=== PATIENT | male | born 1975 | race Caucasian/White ===

== ENCOUNTER 2017-03-20 23:34 | Emergency (ER) | payer OTHER ==
[~2017-03-20] VITALS: Ht 177.8 cm; Wt 90.5 kg
[2017-03-20 23:36] VITALS: BP 152/82; PULSE 92; RESP 18; TEMP 97.4; O2SAT 100
[2017-03-20] MEDS ORDERED: ZIPR1CAP12 PO (23:57)
[2017-03-20] MEDS ORDERED: LISI20TA PO (23:57)
[2017-03-20] MEDS ORDERED: BACL10TA PO (23:57)
[2017-03-20] MEDS ORDERED: LANTUS2P SQ (23:57)
[2017-03-20] MEDS ORDERED: METF1000 PO (23:57)
[2017-03-20] MEDS ORDERED: XANA2TAB2 PO (23:57)
[2017-03-20] MEDS ORDERED: AMBI10TA PO (23:57)
[2017-03-21] MEDS ORDERED: ASPIRIN 81 MG CHEW TAB PO ONE (00:15)
[2017-03-21] MEDS ORDERED: SODIUM CHLORIDE 0.9% FLUSH 10 ML FLUSH IVF PRN (00:15)
[2017-03-21 00:30] LABS: AUTOMATED NEUTROPHIL # 5.8 TH/MM3 (1.8-7.7); BASOPHIL # 0.1 TH/MM3 (0-0.2); BASOPHIL % 0.4 % (0.0-2.0); EOSINOPHIL # 0.3 TH/MM3 (0-0.4); EOSINOPHIL % 2.7 % (0.0-4.0); HEMATOCRIT 39.8 % (39.0-51.0); LYMPHOCYTE # 5.3 TH/MM3 (1.0-4.8); MEAN CELL VOLUME 91.4 FL (80.0-100.0); MEAN CORPUSCULAR HEMOGLOBIN 32.2 PG (27.0-34.0); MEAN CORPUSCULAR HGB CONC 35.2 % (32.0-36.0); MONO % 9.1 % (0.0-8.0); MONOCYTE # 1.2 TH/MM3 (0-0.9); NEUT % 45.8 % (16.0-70.0); PLATELET COUNT 471 TH/MM3 (150-450); RED BLOOD COUNT 4.35 MIL/MM3 (4.50-5.90); RED CELL DISTRIBUTION WIDTH 13.3 % (11.6-17.2); WHITE BLOOD COUNT 12.6 TH/MM3 (4.0-11.0)
--- NOTE | 2017-03-21 00:31 | PD ---
HPI Chief Complaint: Pain: Acute or Chronic Time Seen by Provider: 23:59 Travel History International Travel<30 days: No Contact w/Intl Traveler<30days: No Traveled to known affect area: No History of Present Illness HPI 41-year-old male presents to emergency department complaining of 4 days of cough, congestion, left-sided chest wall pain. The patient states that he has chronic bronchitis and smokes a large amount of cigarettes. He states that he does not use any inhalers. He is disabled with bipolar and schizophrenia. The patient just moved to the area in the last 2 weeks to live with his brother here in [facility]. Patient denies any exertional chest pain. The patient states the pain is a aching pain. It is a aching type pain. He states the pain is worse with coughing or taking a deep breath. He denies any associated nausea, vomiting, diaphoresis or radiation of pain. He states the pain is moderate. Patient denies any fever or chills. No headache, earache, sore throat, abdominal pain or urinary symptoms. PFSH Past Medical History Narrative Medical Hypertension, Diabetes, hypercholesterolemia, COPD, schizophrenia, bipolar High Cholesterol: Yes Diabetes: Yes Patient Takes Glucophage: Yes Hypertension: Yes Psychiatric: Yes (bipolar) Influenza Vaccination: Yes Past Surgical History Oral Surgery: Yes (toothe abcess removal) Social History Alcohol Use: No Tobacco Use: Yes (03/05) Substance Use: No Allergies-Medications (Allergen,Severity, Reaction): Coded Allergies: No Known Allergies (Unverified , 03/20/17) Reported Meds & Prescriptions Reported Meds & Active Scripts Active Diclofenac Sodium DR (Diclofenac Sodium) 75 Mg Tabdr 75 Mg PO BID Doxycycline Hyclate 100 Mg Cap 100 Mg PO BID Proventil Hfa 6.7 GM Inh (Albuterol Sulfate) 90 Mcg/Act Aer 2 Puff INH Q4-6H PRN Reported Lisinopril-Hctz 20-12.5 Mg Tab 1 Tab PO DAILY Baclofen 10 Mg Tab 10 Mg PO BID Xanax (Alprazolam) 2 Mg Tab 2 Mg PO BID PRN Ambien (Zolpidem Tartrate) 10 Mg Tab 10 Mg PO HS PRN Lantus Inj (Insulin Glargine) 1,000 Unit/10 Ml Vial 60 Units SQ HS Metformin (Metformin HCl) 1,000 Mg Tab 1,000 Mg PO BIDPC Ziprasidone 80 Mg Cap 80 Mg PO BID Review of Systems Except as stated in HPI: all other systems reviewed are Neg Physical Exam Narrative GENERAL: Well-developed, well-nourished in no apparent distress. Nontoxic appearing. HEAD: Normocephalic, atraumatic. EYES: Pupils equal round and reactive. Extraocular motions intact. No scleral icterus. No injection or drainage. ENT: Nose clear. Throat without erythema, tonsillar hypertrophy or exudate. Uvula midline. Airway patent. NECK: Trachea midline. Supple, nontender, moves head freely. No central bony tenderness or spasm. CARDIOVASCULAR: Regular rate and rhythm without murmurs, gallops, or rubs. RESPIRATORY: Clear to auscultation. Breath sounds equal bilaterally. No wheezes , rales, or rhonchi. GASTROINTESTINAL: Abdomen soft, non-tender, nondistended. No hepato-splenomegaly , or palpable masses. No guarding. EXTREMITIES: No clubbing, cyanosis, or edema. No joint tenderness. BACK: Nontender without deformity. No flank tenderness. NEUROLOGICAL: Awake, alert and oriented x 3 .Cranial nerves grossly intact. Motor and sensory grossly within normal limits. Normal speech. Data Data Last Documented VS Vital Signs Date Time Temp Pulse Resp B/P (MAP) Pulse Ox O2 Delivery O2 Flow Rate FiO2 03/20/17 23:36 97.4 92 18 152/82 (105) 100 Room Air Orders Orders Electrocardiogram (03/21/17 00:08) Basic Metabolic Panel (Bmp) (03/21/17 00:08) Complete Blood Count With Diff (03/21/17 00:08) Troponin I (03/21/17 00:08) Chest, Single Ap (03/21/17 00:08) Ecg Monitoring (03/21/17 00:08) Iv Access Insert/Monitor (03/21/17 00:08) Oximetry (03/21/17 00:08) Oxygen Administration (03/21/17 00:08) Aspirin Chew (Aspirin Chew) (03/21/17 00:15) Sodium Chloride 0.9% Flush (Ns Flush) (03/21/17 00:15) Ed Discharge Order (03/21/17 01:04) Labs Laboratory Tests Test 03/21/17 00:15 White Blood Count 12.6 TH/MM3 Red Blood Count 4.35 MIL/MM3 Hemoglobin 14.0 GM/DL Hematocrit 39.8 % Mean Corpuscular Volume 91.4 FL Mean Corpuscular Hemoglobin 32.2 PG Mean Corpuscular Hemoglobin Concent 35.2 % Red Cell Distribution Width 13.3 % Platelet Count 471 TH/MM3 Mean Platelet Volume 7.0 FL Neutrophils (%) (Auto) 45.8 % Lymphocytes (%) (Auto) 42.0 % Monocytes (%) (Auto) 9.1 % Eosinophils (%) (Auto) 2.7 % Basophils (%) (Auto) 0.4 % Neutrophils # (Auto) 5.8 TH/MM3 Lymphocytes # (Auto) 5.3 TH/MM3 Monocytes # (Auto) 1.2 TH/MM3 Eosinophils # (Auto) 0.3 TH/MM3 Basophils # (Auto) 0.1 TH/MM3 CBC Comment AUTO DIFF Differential Total Cells Counted 100 Neutrophils % (Manual) 44 % Lymphocytes % 42 % Monocytes % 12 % Eosinophils % 1 % Neutrophils # (Manual) 5.7 TH/MM3 Myelocytes 1 % Differential Comment FINAL DIFF MANUAL Atypical Lymphocytes % Platelet Estimate HIGH Platelet Morphology Comment NORMAL Red Cell Morphology Comment NORMAL Blood Urea Nitrogen 21 MG/DL Creatinine 1.18 MG/DL Random Glucose 106 MG/DL Calcium Level 9.0 MG/DL Sodium Level 137 MEQ/L Potassium Level 3.9 MEQ/L Chloride Level 103 MEQ/L Carbon Dioxide Level 27.8 MEQ/L Anion Gap 6 MEQ/L Estimat Glomerular Filtration Rate 68 ML/MIN Troponin I LESS THAN 0.02 NG/ML MDM Medical Decision Making Medical Screen Exam Complete: Yes Emergency Medical Condition: Yes Medical Record Reviewed: Yes Interpretation(s) EKG: Normal sinus rhythm with a ventricular rate of 85. Cinebar of 95. This is mildly rightward axis Differential Diagnosis Differential diagnoses: Pneumonia, bronchitis, pleuritic chest wall pain, angina , shingles Narrative Course The patient's EKG is negative for acute ST-T wave changes. His troponin is negative. X-rays negative. Patient's history symptoms are more consistent with a noncardiac chest pain. Patient has symptoms of upper respiratory tract etiology. Patient will be given doxycycline, albuterol and diclofenac. This is bronchitis, pleuritic chest wall pain, COPD Diagnosis Primary Impression: bronchitis Additional Impressions: pleuritic chest pain COPD Patient Instructions: General Instructions Additional Instructions: Rest. Increase fluids. Stop smoking. Tylenol and Advil. Robitussin-DM. Doxycycline, diclofenac, and albuterol. Followup with your Dr. in one week. Return to the ER for any problems. Med/Other Pt SpecificInfo: Prescription(s) given Scripts Diclofenac Sodium DR (Diclofenac Sodium DR) 75 Mg Tabdr 75 MG PO BID, #14 TAB 0 Refills Prov: Ryan Segura MD 03/21/17 Doxycycline Hyclate (Doxycycline Hyclate) 100 Mg Cap 100 MG PO BID for Infection, #14 CAP 0 Refills Prov: Ryan Segura MD 03/21/17 Albuterol 6.7 GM Inh (Proventil Hfa 6.7 GM Inh) 90 Mcg/Act Aer 2 PUFF INH Q4-6H Y for SHORTNESS OF BREATH, #1 INHALER 0 Refills Prov: Ryan Segura MD 03/21/17 Disposition: 01 DISCHARGE HOME Condition: Stable Mark Meier Mar 21, 2017 00:31
[2017-03-21 00:52] LABS: BICARBONATE 27.8 MEQ/L (21.0-32.0); BLOOD UREA NITROGEN 21 MG/DL (7-18); CHLORIDE 103 MEQ/L (98-107); CREATININE 1.18 MG/DL (0.60-1.30); GLOMERULAR FILTRATION RATE 68 ML/MIN (>89); GLUCOSE,RANDOM 106 MG/DL (74-106); SODIUM (NA) 137 MEQ/L (136-145)
--- NOTE | 2017-03-21 00:52 | RADRPT ---
EXAM DATE/TIME: 03/21/2017 00:40 [facility] COMPARISON: No previous studies available for comparison. INDICATIONS : Left sided chest pain for 3 days MEDICAL HISTORY : None. SURGICAL HISTORY : None. ENCOUNTER: Initial ACUITY: 3 days PAIN SCORE: 8/10 LOCATION: Left chest FINDINGS: A single view of the chest demonstrates the lungs to be symmetrically aerated without evidence of mas s, infiltrate or effusion. The cardiomediastinal contours are unremarkable. Osseous structures are intact. CONCLUSION: No acute disease. Terrell Rosa MD on March 21, 2017 at 0:50 Board Certified Radiologist. This report was verified electronically.
[2017-03-21 00:56] LABS: TROPONIN I LESS THAN 0.02 NG/ML (0.02-0.05)
[2017-03-21 01:04] LABS: LYMPHOCYTES 42 % (9-44); MONOCYTES 12 % (0-8); MYELOCYTES 1 % (0-0); NEUTROPHIL # MANUAL DIFF 5.7 TH/MM3 (1.8-7.7); POLYS (SEG NEUTROPHILS) 44 % (16-70)
[2017-03-21] MEDS ORDERED: ALBU6.7H INH (01:07)
[2017-03-21] MEDS ORDERED: DICL75TA PO (01:07)
[2017-03-21] MEDS ORDERED: DOXY100C PO (01:07)
--- NOTE | 2017-03-21 22:06 | EKG ---
Date Performed: 03/21/2017 Time Performed: 00:16:50 PTAGE: 41 years EKG: Sinus rhythm BORDERLINE RIGHT AXIS DEVIATION BORDERLINE ECG NO PREVIOUS TRACING DOCTOR: Robin Christopher Interpretating Date/Time 03/21/2017 22:06:15
== END 2017-03-21 01:14 | disposition home or self-care (01) ==
LOC: NEPD 23:34
DX: J44.9 Chronic obstructive pulmonary disease, unspecified (principal); R07.89 Other chest pain; F31.9 Bipolar disorder, unspecified; F20.9 Schizophrenia, unspecified; I10 Essential (primary) hypertension; E11.9 Type 2 diabetes mellitus without complications; E78.00 Pure hypercholesterolemia, unspecified; F17.210 Nicotine dependence, cigarettes, uncomplicated; Z79.4 Long term (current) use of insulin
CPT/HCPCS: 71045; 80048; 84484; 85007; 85027; 93005

== ENCOUNTER 2017-04-25 15:54 | Inpatient (IN) | payer MEDICARE, MEDICAID ==
[2017-04-25] VITALS (8 sets, daily range): BP systolic 91–137; BP diastolic 52–85; PULSE 62–77; RESP 16–18; TEMP 98–98.3; O2SAT 95–99
[~2017-04-25] VITALS: Ht 177.8 cm; Wt 86.2 kg
[~2017-04-25 15:54] MED LIST: ALBU6.7H INH; AMBI10TA PO; BACL10TA PO; DICL75TA PO; DOXY100C PO; LANTUS2P SQ; LISI20TA PO; METF1000 PO; XANA2TAB2 PO; ZIPR1CAP12 PO
[2017-04-25] MEDS ORDERED: SODIUM CHLOR 0.9% 1000 ML INJ 1,000 ML IV ONE ×2 (16:30→17:15)
[2017-04-25 16:33] LABS: AUTOMATED NEUTROPHIL # 5.3 TH/MM3 (1.8-7.7); BASOPHIL % 0.3 % (0.0-2.0); EOSINOPHIL # 0.2 TH/MM3 (0-0.4); HEMATOCRIT 36.4 % (39.0-51.0); HEMOGLOBIN 12.8 GM/DL (13.0-17.0); LYMPH % 33.7 % (9.0-44.0); LYMPHOCYTE # 3.3 TH/MM3 (1.0-4.8); MEAN CELL VOLUME 91.8 FL (80.0-100.0); MEAN CORPUSCULAR HEMOGLOBIN 32.2 PG (27.0-34.0); MEAN CORPUSCULAR HGB CONC 35.1 % (32.0-36.0); MONO % 9.4 % (0.0-8.0); MONOCYTE # 0.9 TH/MM3 (0-0.9); NEUT % 54.6 % (16.0-70.0); PLATELET COUNT 367 TH/MM3 (150-450); RED BLOOD COUNT 3.96 MIL/MM3 (4.50-5.90); RED CELL DISTRIBUTION WIDTH 13.3 % (11.6-17.2); WHITE BLOOD COUNT 9.8 TH/MM3 (4.0-11.0)
[2017-04-25 16:46] LABS: ALBUMIN 3.9 GM/DL (3.4-5.0); ALT (GPT) 20 U/L (12-78); AST (GOT) 17 U/L (15-37); BICARBONATE 26.2 MEQ/L (21.0-32.0); BLOOD UREA NITROGEN 44 MG/DL (7-18); CHLORIDE 99 MEQ/L (98-107); CREATININE 2.89 MG/DL (0.60-1.30); GLOMERULAR FILTRATION RATE 24 ML/MIN (>89); GLUCOSE,RANDOM 120 MG/DL (74-106); SODIUM (NA) 132 MEQ/L (136-145)
--- NOTE | 2017-04-25 16:48 | RADRPT ---
EXAM DATE/TIME: 04/25/2017 16:34 [facility] COMPARISON: CHEST SINGLE AP, March 21, 2017, 0:40. INDICATIONS : Chest pain. MEDICAL HISTORY : None. SURGICAL HISTORY : None. ENCOUNTER: Initial ACUITY: 1 day PAIN SCORE: 3/10 LOCATION: Bilateral chest FINDINGS: A single view of the chest demonstrates the lungs to be symmetrically aerated without evidence of mas s, infiltrate or effusion. The cardiomediastinal contours are unremarkable. Osseous structures are intact. CONCLUSION: The lungs are clear. Roe Cortez MD on April 25, 2017 at 16:46 Board Certified Radiologist. This report was verified electronically.
[2017-04-25 16:49] LABS: ALKALINE PHOSPHATASE 70 U/L (45-117); TOTAL BILIRUBIN ADULT 0.5 MG/DL (0.2-1.0); TOTAL PROTEIN 7.4 GM/DL (6.4-8.2)
[2017-04-25 16:52] LABS: BILIRUBIN, URINE NEG (NEG); BLOOD, URINE NEG (NEG); GLUCOSE,URINE NEG (NEG); HYALINE CAST, URINE 25 /lpf (RARE); KETONE, URINE NEG (NEG); MUCUS URINE FEW /lpf (OCC); NITRITE,URINE NEG (NEG); SQUAMOUS EPITHELIAL CELL URINE <1 /hpf (0-5); URINE COLOR YELLOW (YELLW/STRAW); URINE LEUKOCYTE ESTERASE TRACE (NEG)
--- NOTE | 2017-04-25 17:06 | PD ---
HPI Chief Complaint: GI Complaint Time Seen by Provider: 16:22 Travel History International Travel<30 days: No Contact w/Intl Traveler<30days: No Traveled to known affect area: No History of Present Illness HPI 41-year-old male that presents to the ED for evaluation of dizziness with drinking or eating. Per patient, who is somewhat of a poor historian secondary to his psychiatric history, he gets dizzy every time he eats or drinks anything. Per patient otherwise he has no symptoms. Per patient usually comes afterwards. Per report that was given by ambulance and nurse he was complaining more nausea and vomited. When asked about this he states that he does throw up but he feels more dizzy. He denies any abdominal pain. Per patient she's had some chest pain on and off for the past couple of weeks. Per patient the symptoms ongoing for 2 weeks. He has not seen anybody for this. He has a history of diabetes and states that his been compliant with his medications. No history of kidney problems. No fevers chills or sweats. No headache. He does have a significant history of schizophrenia as well as bipolar disorder and takes medications for this as well. He states that the pain of the chest comes and goes. Denies any urinary bowel movement issues. No fevers chills or sweats. Other medical issues. Currently he has no pain. PFSH Past Medical History Cardiovascular Problems: Yes High Cholesterol: Yes Diabetes: Yes Hypertension: Yes Psychiatric: Yes (bipolar) Past Surgical History Oral Surgery: Yes (toothe abcess removal) Social History Alcohol Use: No Tobacco Use: Yes (03/05) Substance Use: No Allergies-Medications (Allergen,Severity, Reaction): Coded Allergies: No Known Allergies (Unverified , 03/20/17) Reported Meds & Prescriptions Reported Meds & Active Scripts Active Diclofenac Sodium DR (Diclofenac Sodium) 75 Mg Tabdr 75 Mg PO BID Doxycycline Hyclate 100 Mg Cap 100 Mg PO BID Proventil Hfa 6.7 GM Inh (Albuterol Sulfate) 90 Mcg/Act Aer 2 Puff INH Q4-6H PRN Reported Lisinopril-Hctz 20-12.5 Mg Tab 1 Tab PO DAILY Baclofen 10 Mg Tab 10 Mg PO BID Xanax (Alprazolam) 2 Mg Tab 2 Mg PO BID PRN Ambien (Zolpidem Tartrate) 10 Mg Tab 10 Mg PO HS PRN Lantus Inj (Insulin Glargine) 1,000 Unit/10 Ml Vial 60 Units SQ HS Metformin (Metformin HCl) 1,000 Mg Tab 1,000 Mg PO BIDPC Ziprasidone 80 Mg Cap 80 Mg PO BID Review of Systems ROS Limitations: Poor Historian Except as stated in HPI: all other systems reviewed are Neg Physical Exam Exam Limitations: Poor Historian Narrative GENERAL: SKIN: Warm and dry. HEAD: Atraumatic. Normocephalic. EYES: Pupils equal and round. No scleral icterus. No injection or drainage. ENT: No nasal bleeding or discharge. Mucous membranes pink and moist. Tongue is midline. No uvula deviation. NECK: Trachea midline. No JVD. CARDIOVASCULAR: Regular rate and rhythm. No murmurs, S3, S4. RESPIRATORY: No accessory muscle use. Clear to auscultation. Breath sounds equal bilaterally. GASTROINTESTINAL: Abdomen soft, non-tender, nondistended. Hepatic and splenic margins not palpable. MUSCULOSKELETAL: Extremities without clubbing, cyanosis, or edema. No obvious deformities. Full range of motion of the upper and lower extremities bilaterally. 2+ pulses bilaterally. NEUROLOGICAL: Awake and alert. No obvious cranial nerve deficits. Motor grossly within normal limits. Five out of 5 muscle strength in the arms and legs. Normal speech. PSYCHIATRIC: Appropriate mood and affect; insight and judgment normal. Data Data Last Documented VS Vital Signs Date Time Temp Pulse Resp B/P (MAP) Pulse Ox O2 Delivery O2 Flow Rate FiO2 04/25/17 16:04 98.1 76 18 92/52 (65) 95 Orders Orders Complete Blood Count With Diff (04/25/17 16:05) Comprehensive Metabolic Panel (04/25/17 16:05) Urinalysis - C+S If Indicated (04/25/17 16:05) Iv Access Insert/Monitor (04/25/17 16:05) Oxygen Administration (04/25/17 16:05) Oximetry (04/25/17 16:05) Lipase (04/25/17 16:05) Troponin I (04/25/17 16:20) Ckmb (Isoenzyme) Profile (04/25/17 16:20) Electrocardiogram (04/25/17 ) Ct Brain W/O Iv Contrast(Rout) (04/25/17 ) Chest, Single Ap (04/25/17 ) Orthostatic Vital Signs (04/25/17 16:20) Sodium Chlor 0.9% 1000 Ml Inj (Ns 1000 M (04/25/17 16:30) Labs Laboratory Tests Test 04/25/17 16:20 04/25/17 16:30 White Blood Count 9.8 TH/MM3 Red Blood Count 3.96 MIL/MM3 Hemoglobin 12.8 GM/DL Hematocrit 36.4 % Mean Corpuscular Volume 91.8 FL Mean Corpuscular Hemoglobin 32.2 PG Mean Corpuscular Hemoglobin Concent 35.1 % Red Cell Distribution Width 13.3 % Platelet Count 367 TH/MM3 Mean Platelet Volume 7.0 FL Neutrophils (%) (Auto) 54.6 % Lymphocytes (%) (Auto) 33.7 % Monocytes (%) (Auto) 9.4 % Eosinophils (%) (Auto) 2.0 % Basophils (%) (Auto) 0.3 % Neutrophils # (Auto) 5.3 TH/MM3 Lymphocytes # (Auto) 3.3 TH/MM3 Monocytes # (Auto) 0.9 TH/MM3 Eosinophils # (Auto) 0.2 TH/MM3 Basophils # (Auto) 0.0 TH/MM3 CBC Comment DIFF FINAL Differential Comment Blood Urea Nitrogen 44 MG/DL Creatinine 2.89 MG/DL Random Glucose 120 MG/DL Total Protein 7.4 GM/DL Albumin 3.9 GM/DL Calcium Level 9.0 MG/DL Alkaline Phosphatase 70 U/L Aspartate Amino Transf (AST/SGOT) 17 U/L Alanine Aminotransferase (ALT/SGPT) 20 U/L Total Bilirubin 0.5 MG/DL Sodium Level 132 MEQ/L Potassium Level 3.4 MEQ/L Chloride Level 99 MEQ/L Carbon Dioxide Level 26.2 MEQ/L Anion Gap 7 MEQ/L Estimat Glomerular Filtration Rate 24 ML/MIN Lipase 102 U/L Urine Color YELLOW Urine Turbidity CLEAR Urine pH 5.0 Urine Specific [place] 1.015 Urine Protein NEG mg/dL Urine Glucose (UA) NEG mg/dL Urine Ketones NEG mg/dL Urine Occult Blood NEG Urine Nitrite NEG Urine Bilirubin NEG Urine Urobilinogen LESS THAN 2.0 MG/DL Urine Leukocyte Esterase TRACE Urine RBC 1 /hpf Urine WBC 3 /hpf Urine Squamous Epithelial Cells <1 /hpf Urine Hyaline Casts 25 /lpf Urine Mucus FEW /lpf Microscopic Urinalysis Comment CULT NOT INDICATED MDM Medical Decision Making Medical Screen Exam Complete: Yes Emergency Medical Condition: Yes Medical Record Reviewed: Yes Differential Diagnosis Dizziness versus syncope versus chest pain versus atypical chest pain versus kidney failure versus electrolyte abnormality versus nausea and vomiting versus DKA versus dehydration Narrative Course 41-year-old male that presents to the ED for evaluation of dizziness after eating. Patient was properly examined and was found to have signs and symptoms of unclear etiology at this time. Patient is somewhat of a poor historian secondary to be psychiatric illness and is a little difficult to assess whether what he is describing is nausea or dizziness and spinning. He cannot really tell the difference. He has been vomiting. Complains of some chest pain on and off. Has a history of diabetes and hypertension. This time labs and imaging will be ordered. Case will be signed out to incoming provider pending disposition and plan. Wale Lopez Apr 25, 2017 17:06
[2017-04-25 17:29] LABS: TROPONIN I LESS THAN 0.02 NG/ML (0.02-0.05)
--- NOTE | 2017-04-25 18:03 | RADRPT ---
EXAM DATE/TIME: 04/25/2017 17:54 [facility] COMPARISON: No previous studies available for comparison. INDICATIONS : Nausea for past two weeks with dizziness. RADIATION DOSE: 39.38 CTDIvol (mGy) MEDICAL HISTORY : Hypertension. Diabetes mellitus type 2. SURGICAL HISTORY : None. ENCOUNTER: Initial ACUITY: 1 day PAIN SCALE: 3/10 LOCATION: Bilateral cranial TECHNIQUE: Multiple contiguous axial images were obtained of the head. Using automated exposure control and adj ustment of the mA and/or kV according to patient size, radiation dose was kept as low as reasonably a chievable to obtain optimal diagnostic quality images. DICOM format image data is available electro nically for review and comparison. FINDINGS: CEREBRUM: The ventricles are normal for age. No evidence of midline shift, mass lesion, hemorrhage or acute in farction. No extra-axial fluid collections are seen. POSTERIOR FOSSA: The cerebellum and brainstem are intact. The 4th ventricle is midline. The cerebellopontine angle i s unremarkable. EXTRACRANIAL: The visualized portion of the orbits is intact. SKULL: The calvaria is intact. No evidence of skull fracture. CONCLUSION: Normal examination. Terrell Taveras MD on April 25, 2017 at 18:00 Board Certified Radiologist. This report was verified electronically.
[2017-04-25] MEDS ORDERED: SENNOSIDES 8.6 MG TAB PO PRN (20:15)
[2017-04-25] MEDS ORDERED: SODIUM CHLORIDE 0.9% FLUSH 10 ML FLUSH IV FLUSH PRN (20:15)
[2017-04-25] MEDS ORDERED: ZOLPIDEM TARTRATE 10 MG TAB PO PRN (20:15)
[2017-04-25] MEDS ORDERED: ACETAMINOPHEN 325 MG TAB PO PRN (20:15)
[2017-04-25] MEDS ORDERED: GLUCAGON 1 MG/ML VIAL OTHER PRN (20:15)
[2017-04-25] MEDS ORDERED: ONDANSETRON HCL 4 MG/2 ML VIAL IVP PRN (20:15)
[2017-04-25] MEDS ORDERED: ALPRAZolam 1 MG TAB PO PRN (20:15)
[2017-04-25] MEDS ORDERED: BISACODYL 10 MG SUPP RECTAL PRN (20:15)
[2017-04-25] MEDS ORDERED: POTASSIUM CHLORIDE 20 MEQ CONTROLLED RELEASE TAB PO ONE (20:15)
[2017-04-25] MEDS ORDERED: NALOXONE HCL 0.4 MG/ML AMP IV PUSH PRN (20:15)
[2017-04-25] MEDS ORDERED: DEXTROSE 50% IN WATER 50 ML VIAL(D50) IV PUSH PRN (20:15)
[2017-04-25] MEDS ORDERED: REMOVE OLD PATCH T-DERMAL SCH (21:00)
[2017-04-25] MEDS: INSULIN ASPART SUPPLEMENTAL SCALE SQ SCH (21:00)
--- NOTE | 2017-04-25 21:08 | HHI.HP ---
[facility] No Primary Care Physician Admission Diagnosis acute kidney injury, dehydration Diagnoses: Travel History International Travel<30 Days: No Contact w/Intl Traveler <30 Da: No Traveled to Known Affected Are: No History of Present Illness 41-year-old male with a past medical history significant for insulin-dependent diabetes mellitus, hypertension, bipolar disorder and anxiety presents to the emergency department complaining of dizziness with eating. The patient reports that for the last 2 weeks every time he eats food he has a episode of dizziness that follows. He is a poor historian. His girlfriend, who is accompanying the patient, reports that the patient has had postprandial emesis for the past 2 weeks. She reports that he cannot keep any food down. The patient states he is throwing up because the "food is bad." During approximately 2-3 times per day. He denies any fever/chills. Denies nausea or diarrhea. He states he is not having chest pain or shortness of breath. Review of Systems Except as stated in HPI: all other systems reviewed are Neg Past Family Social History Past Medical History Bipolar disorder Anxiety Hypertension Diabetes mellitus Past Surgical History None Allergies: Coded Allergies: No Known Allergies (Unverified , 03/20/17) Physical Exam Vital Signs Vital Signs Date Time Temp Pulse Resp B/P (MAP) Pulse Ox O2 Delivery O2 Flow Rate FiO2 04/25/17 18:46 76 18 121/71 (88) 99 Room Air 04/25/17 18:44 77 137/85 (102) 75 121/71 (88) 04/25/17 18:39 99 Room Air 04/25/17 18:39 99 Room Air 04/25/17 18:32 18 04/25/17 16:04 98.1 76 18 92/52 (65) 95 Physical Exam GENERAL: male standing, pacing around the room SKIN: No rashes, ecchymoses or lesions. Cool and dry. HEAD: Atraumatic. Normocephalic. No temporal or scalp tenderness. EYES: Pupils equal round and reactive. Extraocular motions intact. No scleral icterus. No injection or drainage. ENT: Nose without bleeding, purulent drainage or septal hematoma. Throat without erythema, tonsillar hypertrophy or exudate. Uvula midline. Airway patent. NECK: Trachea midline. No JVD or lymphadenopathy. Supple, nontender, no meningeal signs. CARDIOVASCULAR: Regular rate and rhythm without murmurs, gallops, or rubs. RESPIRATORY: Clear to auscultation. Breath sounds equal bilaterally. No wheezes , rales, or rhonchi. GASTROINTESTINAL: Abdomen soft, non-tender, nondistended. No hepato-splenomegaly , or palpable masses. No guarding. MUSCULOSKELETAL: Extremities without clubbing, cyanosis, or edema. No joint tenderness, effusion, or edema noted. No calf tenderness. NEUROLOGICAL: Awake and alert. Cranial nerves II through XII intact. Motor and sensory grossly within normal limits. Normal speech. Laboratory Laboratory Tests Test 04/25/17 16:20 04/25/17 16:30 White Blood Count 9.8 Red Blood Count 3.96 Hemoglobin 12.8 Hematocrit 36.4 Mean Corpuscular Volume 91.8 Mean Corpuscular Hemoglobin 32.2 Mean Corpuscular Hemoglobin Concent 35.1 Red Cell Distribution Width 13.3 Platelet Count 367 Mean Platelet Volume 7.0 Neutrophils (%) (Auto) 54.6 Lymphocytes (%) (Auto) 33.7 Monocytes (%) (Auto) 9.4 Eosinophils (%) (Auto) 2.0 Basophils (%) (Auto) 0.3 Neutrophils # (Auto) 5.3 Lymphocytes # (Auto) 3.3 Monocytes # (Auto) 0.9 Eosinophils # (Auto) 0.2 Basophils # (Auto) 0.0 CBC Comment DIFF FINAL Differential Comment Blood Urea Nitrogen 44 Creatinine 2.89 Random Glucose 120 Total Protein 7.4 Albumin 3.9 Calcium Level 9.0 Alkaline Phosphatase 70 Aspartate Amino Transf (AST/SGOT) 17 Alanine Aminotransferase (ALT/SGPT) 20 Total Bilirubin 0.5 Sodium Level 132 Potassium Level 3.4 Chloride Level 99 Carbon Dioxide Level 26.2 Anion Gap 7 Estimat Glomerular Filtration Rate 24 Total Creatine Kinase 497 Creatine Kinase MB 4.3 Creatine Kinase MB % 0.9 Troponin I LESS THAN 0.02 Lipase 102 Urine Color YELLOW Urine Turbidity CLEAR Urine pH 5.0 Urine Specific [place] 1.015 Urine Protein NEG Urine Glucose (UA) NEG Urine Ketones NEG Urine Occult Blood NEG Urine Nitrite NEG Urine Bilirubin NEG Urine Urobilinogen LESS THAN 2.0 Urine Leukocyte Esterase TRACE Urine RBC 1 Urine WBC 3 Urine Squamous Epithelial Cells <1 Urine Hyaline Casts 25 Urine Mucus FEW Microscopic Urinalysis Comment CULT NOT INDICATED Result Diagram: 04/25/17161904/25/17 162 Caprini VTE Risk Assessment Caprini VTE Risk Assessment: No/Low Risk (score <= 1) Caprini Risk Assessment Model Point Value = 1 Point Value = 2 Point Value = 3 Point Value = 5 Age 41-60 Minor surgery BMI > 25 kg/m2 Swollen legs Varicose veins or History of unexplained or recurrent spontaneous Oral contraceptives or hormone replacement Sepsis (< 1 month) Serious lung disease, including pneumonia (< 1 month) Abnormal pulmonary function Acute myocardial infarction Congestive heart failure (< 1 month) History of inflammatory bowel disease Medical patient at bed rest Age 61-74 Arthroscopic surgery Major open surgery (> 45 min) Laparoscopic surgery (> 45 min) Malignancy Confined to bed (> 72 hours) Immobilizing plaster cast Central venous access Age >= 75 History of VTE Family history of VTE Factor V Leiden Prothrombin [id number] Lupus anticoagulant Anticardiolipin antibodies Elevated serum homocysteine Heparin-induced thrombocytopenia Other congenital or acquired thrombophilia Stroke (< 1 month) Elective arthroplasty Hip, pelvis, or leg fracture Acute spinal cord injury (< 1 month) Prophylaxis Regimen Total Risk Factor Score Risk Level Prophylaxis Regimen 0-1 Low Early ambulation 2 Moderate Order ONE of the following: *Sequential Compression Device (SCD) *Heparin 5000 units SQ BID 3-4 Higher Order ONE of the following medications: *Heparin 5000 units SQ TID *Enoxaparin/Lovenox 40 mg SQ daily (WT < 150 kg, CrCl > 30 mL/min) *Enoxaparin/Lovenox 30 mg SQ daily (WT < 150 kg, CrCl > 10-29 mL/min) *Enoxaparin/Lovenox 30 mg SQ BID (WT < 150 kg, CrCl > 30 mL/min) AND/OR *Sequential Compression Device (SCD) 5 or more Highest Order ONE of the following medications: *Heparin 5000 units SQ TID (Preferred with Epidurals) *Enoxaparin/Lovenox 40 mg SQ daily (WT < 150 kg, CrCl > 30 mL/min) *Enoxaparin/Lovenox 30 mg SQ daily (WT < 150 kg, CrCl > 10-29 mL/min) *Enoxaparin/Lovenox 30 mg SQ BID (WT < 150 kg, CrCl > 30 mL/min) AND *Sequential Compression Device (SCD) Assessment and Plan Assessment and Plan Assessment/plan: 1. Acute renal failure BUN/creatinine 44/2.89, baseline 1.18 from 1 month ago Likely secondary to 2 weeks of emesis IV fluid hydration Monitor renal function If patient's renal function does not improve with hydration, consider nephrology consult 2. Postprandial emesis May be secondary to gastroparesis as patient with significant history of diabetes Reglan before meals Patient requesting to eat at this time, trial of by mouth intake 3. Diabetes mellitus Holding home basal insulin as patient's blood glucose 120 and he has been vomiting persistently Sliding scale insulin Monitor blood glucose 4. Bipolar disorder/anxiety Continue Geodon and Xanax 5. Hypertension Patient reports history of hypertension however is not on any home antihypertensives Monitor blood pressures And antihypertensive medication if needed FEN Heart healthy diet Electrolytes: Replete potassium Ambulation NS at 150 cc/hr Physician Certification 2 Midnight Certification Type: Admission for Inpatient Services Order for Inpatient Services The services are ordered in accordance with Medicare regulations or non- Medicare payer requirements, as applicable. In the case of services not specified as inpatient-only, they are appropriately provided as inpatient services in accordance with the 2-midnight benchmark. Estimated LOS (days): 2 2 days is the estimated time the patient will need to remain in the hospital, assuming treatment plan goals are met and no additional complications. Post-Hospital Plan: Not yet determined Sandra Sanchez MD Apr 25, 2017 21:08
[2017-04-25] MEDS: SODIUM CHLORIDE 0.9% FLUSH 10 ML FLUSH IV FLUSH SCH (21:09)
[2017-04-25] MEDS: METOCLOPRAMIDE HCL 10 MG/2 ML VIAL IV PUSH SCH (21:11)
[2017-04-25] MEDS: HEPARIN SODIUM - SQ 10,000 UNITS/ML VIAL SQ SCH (21:12)
[2017-04-25] MEDS: SODIUM CHLOR 0.9% 1000 ML INJ 1,000 ML IV SCH (21:49)
[2017-04-25] MEDS: NICOTINE 21 MG/24 HR PATCH T-DERMAL SCH (21:55)
[2017-04-25] MEDS ORDERED: ZIPRASIDONE HCL 80 MG CAP PO ONE (22:30)
[2017-04-26] VITALS: PULSE 57
[2017-04-26 03:50] VITALS: BP 90/54; PULSE 60; RESP 16; TEMP 97.3; O2SAT 97
[2017-04-26 04:00] VITALS: PULSE 63
[2017-04-26] MEDS: SODIUM CHLOR 0.9% 1000 ML INJ 1,000 ML IV SCH ×2 (04:23→09:37)
[2017-04-26 05:55] LABS: AUTOMATED NEUTROPHIL # 2.8 TH/MM3 (1.8-7.7); BASOPHIL % 0.4 % (0.0-2.0); EOSINOPHIL # 0.3 TH/MM3 (0-0.4); EOSINOPHIL % 3.2 % (0.0-4.0); HEMATOCRIT 35.2 % (39.0-51.0); HEMOGLOBIN 12.4 GM/DL (13.0-17.0); LYMPH % 53.1 % (9.0-44.0); LYMPHOCYTE # 4.2 TH/MM3 (1.0-4.8); MEAN CELL VOLUME 92.4 FL (80.0-100.0); MEAN CORPUSCULAR HEMOGLOBIN 32.6 PG (27.0-34.0); MEAN CORPUSCULAR HGB CONC 35.2 % (32.0-36.0); MEAN PLATELET VOLUME 7.1 FL (7.0-11.0); MONO % 8.5 % (0.0-8.0); MONOCYTE # 0.7 TH/MM3 (0-0.9); NEUT % 34.8 % (16.0-70.0); PLATELET COUNT 334 TH/MM3 (150-450); RED BLOOD COUNT 3.82 MIL/MM3 (4.50-5.90); RED CELL DISTRIBUTION WIDTH 13.3 % (11.6-17.2)
[2017-04-26 06:15] LABS: BICARBONATE 28.5 MEQ/L (21.0-32.0); CALCIUM 8.6 MG/DL (8.5-10.1); CREATININE 1.59 MG/DL (0.60-1.30)
[2017-04-26] MEDS ORDERED: POTASSIUM CHLORIDE 10 MEQ CONTROLLED RELEASE TAB PO ONE (07:45)
[2017-04-26 08:00] VITALS: BP 106/58; PULSE 77; PULSE 90; RESP 19; TEMP 97.9; O2SAT 95
[2017-04-26] MEDS: INSULIN ASPART SUPPLEMENTAL SCALE SQ SCH ×2 (08:00→12:00)
[2017-04-26] MEDS ORDERED: ZIPRASIDONE HCL 80 MG CAP PO SCH (09:00)
[2017-04-26] MEDS ORDERED: REMOVE OLD PATCH T-DERMAL SCH (09:00)
[2017-04-26] MEDS: HEPARIN SODIUM - SQ 10,000 UNITS/ML VIAL SQ SCH (09:35)
[2017-04-26] MEDS: NICOTINE 21 MG/24 HR PATCH T-DERMAL SCH (09:35)
[2017-04-26] MEDS: METOCLOPRAMIDE HCL 10 MG/2 ML VIAL IV PUSH SCH ×2 (09:36→12:28)
[2017-04-26] MEDS: SODIUM CHLORIDE 0.9% FLUSH 10 ML FLUSH IV FLUSH SCH (09:36)
[2017-04-26] MEDS ORDERED: PNEUMOCOCCAL POLYVALENT INJ 25 MCG/0.5 ML SYR IM ONE (10:00)
[2017-04-26] MEDS ORDERED: REGL10TA5 PO (10:25)
--- NOTE | 2017-04-26 10:30 | HHI.PR ---
Subjective Remarks Follow-up gastroparesis 04/26/17-patient seen and examined reports significant improvement of postprandial emesis since admissions. Renal indices improving. Would like to be discharged home. Objective Vitals Vital Signs Date Time Temp Pulse Resp B/P (MAP) Pulse Ox O2 Delivery O2 Flow Rate FiO2 04/26/17 08:00 97.9 77 19 106/58 (74) 95 04/26/17 08:00 90 04/26/17 04:00 63 04/26/17 03:50 97.3 60 16 90/54 (66) 97 04/26/17 03:41 Room Air 04/26/17 00:00 Room Air 04/26/17 00:00 57 04/25/17 23:40 98.3 62 16 91/54 (66) 96 04/25/17 23:00 Room Air 04/25/17 21:42 04/25/17 21:40 98.0 74 16 115/64 (81) 99 04/25/17 21:14 74 16 134/68 (90) 97 Room Air 04/25/17 20:00 77 04/25/17 18:46 76 18 121/71 (88) 99 Room Air 04/25/17 18:44 77 137/85 (102) 75 121/71 (88) 04/25/17 18:39 99 Room Air 04/25/17 18:39 99 Room Air 04/25/17 18:32 18 04/25/17 16:04 98.1 76 18 92/52 (65) 95 I/O 04/25/17 04/25/17 04/25/17 04/26/17 04/26/17 04/26/17 07:00 15:00 23:00 07:00 15:00 23:00 Intake Total 1720 ml Output Total 875 ml Balance 845 ml Intake Oral 720 ml IV Total 1000 ml Output Urine Total 875 ml # Bowel Movements 0 Result Diagram: 04/26/175 04/26/175 Imaging Last Impressions Head CT 04/25/17 0000 Signed Impressions: Service Date/Time: April 17:54 - CONCLUSION: Normal examination. Terrell Taveras MD Chest X-Ray 04/25/17 0000 Signed Impressions: Service Date/Time: April 16:34 - CONCLUSION: The lungs are clear. Roe Cortez MD Objective Remarks GENERAL: NAD SKIN: Warm and dry. HEAD: Normocephalic. EYES: No scleral icterus. No injection or drainage. NECK: Supple, trachea midline. No JVD or lymphadenopathy. CARDIOVASCULAR: Regular rate and rhythm without murmurs, gallops, or rubs. RESPIRATORY: Breath sounds equal bilaterally. No accessory muscle use. GASTROINTESTINAL: Abdomen soft, non-tender, nondistended. MUSCULOSKELETAL: No cyanosis, or edema. BACK: Nontender without obvious deformity. No CVA tenderness. Procedures None A/P Problem List: (1) Gastroparesis ICD Code: K31.84 - Gastroparesis (2) Acute renal failure ICD Code: N17.9 - Acute kidney failure, unspecified Assessment and Plan 41-year-old man 1. Acute renal failure Renal indices improving with IV fluid hydration 2. Postprandial emesis/gastroparesis Resolved Reglan before meals 3. Diabetes mellitus She will resume outpatient basal insulin Sliding scale insulin Monitor blood glucose 4. Bipolar disorder/anxiety Continue Geodon and Xanax 5. Hypertension Currently normotensive without any oral antihypertensive medication Discharge Planning Discharge patient to home Condition on discharge: Improved ADA Diet as tolerated Ad Xiao activity Rx written: Reglan 10mg TIDAC Follow-up with primary care physician in one week Problem Qualifiers (1) Acute renal failure: Qualified Codes: N17.9 - Acute kidney failure, unspecified Gerry Werner MD Apr 26, 2017 10:30
--- NOTE | 2017-04-26 14:34 | EKG ---
Date Performed: 04/25/2017 Time Performed: 16:55:01 PTAGE: 41 years EKG: Sinus rhythm MODERATE INTRAVENTRICULAR CONDUCTION DELAY BORDERLINE ECG PREVIOUS TRACING : 03/21/2017 00.16 Since the prior tracing, there has been no significant mendoza DOCTOR: Jennifer Russell Interpretating Date/Time 04/26/2017 14:32:34
== END 2017-04-26 13:47 | disposition home or self-care (01) | DRG 74 ==
LOC: NEPE 15:54 → NEDA 19:25 → OBSVTOIN 20:10 → N04A 21:16
PROVIDERS: ADMIT Hospitalist; ATTEND Hospitalist
DX: E11.43 Type 2 diabetes mellitus with diabetic autonomic (poly)neuropathy (principal); N17.9 Acute kidney failure, unspecified; K31.84 Gastroparesis; I10 Essential (primary) hypertension; E86.0 Dehydration; F20.9 Schizophrenia, unspecified; F31.9 Bipolar disorder, unspecified; F41.9 Anxiety disorder, unspecified; F17.210 Nicotine dependence, cigarettes, uncomplicated; Z23 Encounter for immunization; Z79.4 Long term (current) use of insulin; E78.00 Pure hypercholesterolemia, unspecified
CPT/HCPCS: 70450; 71045; 80048; 80053; 81001; 82550; 82552; 82948; 83690; 84484; 85025; 90732; 93005; 96360; J1644; J2765; J7030

== ENCOUNTER 2017-05-11 19:47 | Emergency (ER) | payer MEDICARE, MEDICAID ==
[~2017-05-11] VITALS: Ht 165.1 cm; Wt 70.0 kg
[~2017-05-11 19:47] MED LIST changes: -DICL75TA PO; -DOXY100C PO; +REGL10TA5 PO
[2017-05-11 20:14] VITALS: BP 141/86; PULSE 103; RESP 16; TEMP 99.1; O2SAT 97
[2017-05-11 22:00] VITALS: BP 122/74; PULSE 78; RESP 21; O2SAT 100
[2017-05-11] MEDS ORDERED: SODIUM CHLOR 0.9% 1000 ML INJ 1,000 ML IV ONE (22:08)
--- NOTE | 2017-05-11 22:13 | PD ---
HPI Chief Complaint: Medical Clearance Time Seen by Provider: 21:50 Travel History International Travel<30 days: No Contact w/Intl Traveler<30days: No Traveled to known affect area: No History of Present Illness HPI 41-year-old male presents via EMS for evaluation of dizziness. He reports that prior to arrival he was feeling dizzy and lightheaded. This has since resolved and he now feels normal. He reports that he did not eat or drink anything today. When asked why he says "I do not know" and reports that he has food at home. He denies any headache, blurred vision, chest pain, shortness of breath, nausea or vomiting, abdominal pain, fevers or chills. He reports that he feels like he was dehydrated. He felt similar symptoms in April and at that time he was hospitalized for acute kidney injury and dehydration. He has no other complaints at this time. PFSH Past Medical History Bipolar Disorder: Yes Anxiety: Yes Depression: No Cancer: No Cardiovascular Problems: Yes High Cholesterol: Yes Diabetes: Yes Patient Takes Glucophage: No Genitourinary: Yes (current) Hypertension: Yes Musculoskeletal: Yes Neurologic: Yes Psychiatric: Yes (bipolar) Reproductive: No Respiratory: No Past Surgical History Oral Surgery: Yes (toothe abcess removal) Other Surgery: Yes Social History Alcohol Use: Yes (twice a month ) Tobacco Use: Yes (1 03/05 ppd ) Substance Use: Yes (marijuana daily ) Allergies-Medications (Allergen,Severity, Reaction): Coded Allergies: No Known Allergies (Unverified , 05/11/17) Reported Meds & Prescriptions Reported Meds & Active Scripts Active Reglan (Metoclopramide HCl) 10 Mg Tab 10 Mg PO TIDAC Proventil Hfa 6.7 GM Inh (Albuterol Sulfate) 90 Mcg/Act Aer 2 Puff INH Q4-6H PRN Reported Lisinopril-Hctz 20-12.5 Mg Tab 1 Tab PO DAILY Baclofen 10 Mg Tab 10 Mg PO BID Xanax (Alprazolam) 2 Mg Tab 2 Mg PO BID PRN Ambien (Zolpidem Tartrate) 10 Mg Tab 10 Mg PO HS PRN Lantus Inj (Insulin Glargine) 1,000 Unit/10 Ml Vial 60 Units SQ HS Metformin (Metformin HCl) 1,000 Mg Tab 1,000 Mg PO BIDPC Ziprasidone 80 Mg Cap 80 Mg PO BID Review of Systems Except as stated in HPI: all other systems reviewed are Neg Physical Exam Narrative GENERAL: Well-developed well-nourished male in no acute distress SKIN: Warm and dry. HEAD: Atraumatic. Normocephalic. EYES: Pupils equal and round. No scleral icterus. No injection or drainage. ENT: No nasal bleeding or discharge. Mucous membranes pink and moist. NECK: Trachea midline. No JVD. CARDIOVASCULAR: Regular rate and rhythm. No murmur appreciated. RESPIRATORY: No accessory muscle use. Clear to auscultation. Breath sounds equal bilaterally. GASTROINTESTINAL: Abdomen soft, non-tender, nondistended. Hepatic and splenic margins not palpable. MUSCULOSKELETAL: No obvious deformities. No clubbing. No cyanosis. No edema. NEUROLOGICAL: Awake and alert. No obvious cranial nerve deficits. Motor grossly within normal limits. Normal speech. PSYCHIATRIC: Appropriate mood and affect; insight and judgment normal. Data Data Last Documented VS Vital Signs Date Time Temp Pulse Resp B/P (MAP) Pulse Ox O2 Delivery O2 Flow Rate FiO2 05/11/17 20:14 99.1 103 16 141/86 (104) 97 Orders Orders Electrocardiogram (05/11/17 22:08) Basic Metabolic Panel (Bmp) (05/11/17 22:08) Complete Blood Count With Diff (05/11/17 22:08) Magnesium (Mg) (05/11/17 22:08) Blood Glucose (05/11/17 22:08) Iv Access Insert/Monitor (05/11/17 22:08) Sodium Chlor 0.9% 1000 Ml Inj (Ns 1000 M (05/11/17 22:08) Creatine Kinase (Cpk) (05/11/17 22:08) Labs Laboratory Tests Test 05/11/17 22:33 White Blood Count 13.0 TH/MM3 Red Blood Count 4.47 MIL/MM3 Hemoglobin 14.7 GM/DL Hematocrit 41.5 % Mean Corpuscular Volume 93.0 FL Mean Corpuscular Hemoglobin 32.9 PG Mean Corpuscular Hemoglobin Concent 35.4 % Red Cell Distribution Width 13.4 % Platelet Count 462 TH/MM3 Mean Platelet Volume 6.9 FL Neutrophils (%) (Auto) 61.1 % Lymphocytes (%) (Auto) 29.9 % Monocytes (%) (Auto) 7.1 % Eosinophils (%) (Auto) 1.5 % Basophils (%) (Auto) 0.4 % Neutrophils # (Auto) 8.0 TH/MM3 Lymphocytes # (Auto) 3.9 TH/MM3 Monocytes # (Auto) 0.9 TH/MM3 Eosinophils # (Auto) 0.2 TH/MM3 Basophils # (Auto) 0.1 TH/MM3 CBC Comment DIFF FINAL Differential Comment Blood Urea Nitrogen 18 MG/DL Creatinine 1.06 MG/DL Random Glucose 80 MG/DL Calcium Level 9.3 MG/DL Magnesium Level 2.3 MG/DL Sodium Level 137 MEQ/L Potassium Level 3.8 MEQ/L Chloride Level 102 MEQ/L Carbon Dioxide Level 28.6 MEQ/L Anion Gap 6 MEQ/L Estimat Glomerular Filtration Rate 77 ML/MIN Total Creatine Kinase 150 U/L [facility] Medical Decision Making Medical Screen Exam Complete: Yes Emergency Medical Condition: Yes Medical Record Reviewed: Yes Differential Diagnosis Dehydration, acute kidney injury, electrolyte abnormality, arrhythmia, hypoglycemia Narrative Course The patient was placed on ECG monitoring pulse oximetry. 12-lead EKG will be obtained. He will be given IV fluids. Lab work has been ordered. WBC is 13. BMP is unremarkable. CK is unremarkable. EKG reveals normal sinus rhythm. The patient was monitored here for some time. He is stable for discharge. Diagnosis Primary Impression: Poor nutrition Additional Instructions: Stay well hydrated and well-nourished. Return for any emergent medical conditions. Med/Other Pt SpecificInfo: No Change to Meds Disposition: 01 DISCHARGE HOME Condition: Stable Ramesh Ruiz May 11, 2017 22:13
[2017-05-11 22:55] LABS: BASOPHIL # 0.1 TH/MM3 (0-0.2); BASOPHIL % 0.4 % (0.0-2.0); EOSINOPHIL # 0.2 TH/MM3 (0-0.4); EOSINOPHIL % 1.5 % (0.0-4.0); HEMATOCRIT 41.5 % (39.0-51.0); HEMOGLOBIN 14.7 GM/DL (13.0-17.0); LYMPH % 29.9 % (9.0-44.0); LYMPHOCYTE # 3.9 TH/MM3 (1.0-4.8); MEAN CORPUSCULAR HEMOGLOBIN 32.9 PG (27.0-34.0); MEAN CORPUSCULAR HGB CONC 35.4 % (32.0-36.0); MEAN PLATELET VOLUME 6.9 FL (7.0-11.0); MONO % 7.1 % (0.0-8.0); MONOCYTE # 0.9 TH/MM3 (0-0.9); NEUT % 61.1 % (16.0-70.0); PLATELET COUNT 462 TH/MM3 (150-450); RED BLOOD COUNT 4.47 MIL/MM3 (4.50-5.90); RED CELL DISTRIBUTION WIDTH 13.4 % (11.6-17.2)
[2017-05-11 23:07] LABS: BICARBONATE 28.6 MEQ/L (21.0-32.0); CALCIUM 9.3 MG/DL (8.5-10.1); CREATININE 1.06 MG/DL (0.60-1.30); MAGNESIUM 2.3 MG/DL (1.5-2.5)
[2017-05-11 23:12] VITALS: BP 116/69; PULSE 79; RESP 20; O2SAT 100
--- NOTE | 2017-05-12 10:09 | EKG ---
Date Performed: 05/11/2017 Time Performed: 23:12:09 PTAGE: 41 years EKG: Sinus rhythm NORMAL ECG No significant change from prior electrocardiogram. PREVIOUS TRACING : 04/25/2017 16.55 DOCTOR: Julio Monte Interpretating Date/Time 05/12/2017 10:08:58
== END 2017-05-12 00:18 | disposition home or self-care (01) ==
LOC: NEPD 19:47
DX: E46 Unspecified protein-calorie malnutrition (principal); E78.00 Pure hypercholesterolemia, unspecified; E11.9 Type 2 diabetes mellitus without complications; I10 Essential (primary) hypertension; F31.9 Bipolar disorder, unspecified; F41.9 Anxiety disorder, unspecified; F17.200 Nicotine dependence, unspecified, uncomplicated; F12.90 Cannabis use, unspecified, uncomplicated
CPT/HCPCS: 80048; 82550; 83735; 85025; 93005; 99284; J7030